=== PATIENT | female | born 1955 | race Caucasian/White ===

== ENCOUNTER 2018-04-29 16:04 | Inpatient (IN) | END 2018-05-01 15:48 | disposition home or self-care (01) | DRG 74 ==

== ENCOUNTER 2018-12-04 16:34 | Emergency (ER) | payer OTHER ==
[~2018-12-04] VITALS: Ht 160 cm; Wt 81.0 kg
[~2018-12-04 16:34] MED LIST: ALLO100T PO; ASPI-817 PO; ATEN50TA PO; CAPT1TAB PO; CIPR500T4 PO; GEMF600T8 PO; PRED10TA PO; VALA500T PO
[2018-12-04 16:45] VITALS: BP 142/76; PULSE 72; RESP 16; Ht 160 cm; Wt 81.0 kg
[2018-12-04] MEDS ORDERED: ASPIRIN 81 MG TAB PO ONE (20:30)
[2018-12-04] MEDS ORDERED: ASPI-903 PO (20:30)
[2018-12-04] MEDS ORDERED: MED4DP PO (20:30)
--- NOTE | 2018-12-04 20:41 | ERD ---
ER Documentation Chief Complaint Chief Complaint L face numbness and swelling since yesterday morning HPI 63-year-old female presenting to the ED for left face weakness since yesterday at noon. Patient states this happened back in April she was seen in the ER she thinks that she was diagnosed with a stroke. Patient is ambulating without difficulty speaking in full sentences when I walked into the room the patient was on her cell phone. Patient denies headache, dizziness, sensation is that she can a pass out patient has a history of high blood pressure. Patient states she takes medications for this. Patient denies any allergies to medications. ROS All systems reviewed and are negative except as per history of present illness. Medications Home Meds Active Scripts Ondansetron (Ondansetron Odt) 4 Mg Tab.rapdis, 4 MG PO Q6H PRN for NAUSEA AND/OR VOMITING, #10 TAB Prov:MARY KATE QUIROGA PA-C 12/04/18 Methylprednisolone* (Medrol* DOSE PACK) 4 Mg/Dose-Pack Tab.ds.pk, 4 MG PO . DIRECTED for 10 Days, PACKET Prov:MARY KATE QUIROGA PA-C 12/04/18 Aspirin* (Aspirin* Chew) 81 Mg Tab.chew, 81 MG PO DAILY for 10 Days, TAB.CHEW Prov:MARY KATE QUIROGA PA-C 12/04/18 Aspirin* (Aspirin* EC) 81 Mg Tablet.dr, 81 MG PO DAILY, #30 TAB Prov:CARMELO CAMPOVERDE 05/01/18 Prednisone* (Prednisone*) 10 Mg Tab, 10 MG PO DAILY, #33 TAB Prov:CARMELO CAMPOVERDE 05/01/18 valAcyclovir Hcl* (valACYclovir Hcl*) 500 Mg Tablet, 1000 MG PO BID for 4 Days, #8 TAB Prov:CARMELO CAMPOVERDE 05/01/18 Ciprofloxacin Hcl* (Ciprofloxacin Hcl*) 500 Mg Tablet, 500 MG PO BID for 3 Days, #6 TAB Prov:CARMELO CAMPOVERDE 05/01/18 Reported Medications Allopurinol* (Allopurinol*) 100 Mg Tablet, 100 MG PO DAILY, TAB 04/29/18 Captopril/Hydrochlorothiazide (Captopril-Hctz 25-25 mg Tablet) 1 Each Tablet, 1 EACH PO DAILY, TAB 04/29/18 Atenolol* (Atenolol*) 50 Mg Tablet, 50 MG PO DAILY, #30 TAB 04/29/18 Gemfibrozil* (Gemfibrozil*) 600 Mg Tablet, 600 MG PO BID, TAB 04/29/18 Allergies Allergies: Coded Allergies: No Known Allergy (Unverified , 04/29/18) PMhx/Soc History of Surgery: Yes (Cataract x2, hysterectomy) Anesthesia Reaction: No Hx Neurological Disorder: No Hx Respiratory Disorders: No Hx Cardiac Disorders: Yes (HTN) Hx Psychiatric Problems: No Hx Miscellaneous Medical Probl: No Hx Alcohol Use: No Hx Substance Use: No Hx Tobacco Use: No Smoking Status: Never smoker FmHx Family History: coronary disease; No diabetes, No other Physical Exam Vitals Vital Signs Date Temp Pulse Resp B/P (MAP) Pulse Ox O2 O2 Flow FiO2 Time Delivery Rate 12/04/18 98.3 72 16 142/76 95 16:45 (98) Physical Exam GENERAL: The patient is well-appearing, well-nourished, in no acute distress HEENT: Patient has mild left facial droop. Atraumatic. Conjunctivae are pink. Pupils equal, round, and reactive to light. There is no scleral icterus. Tympanic membranes clear bilaterally. Oropharynx clear. No nystagmus or photophobia. NECK: C-spine is soft and supple. There is no meningismus. There is no cervical lymphadenopathy. CHEST: Clear to auscultation bilaterally. There are no rales, wheezes or rhonchi. HEART: Regular rate and rhythm. No murmurs, clicks, rubs or gallops. ABDOMEN:Soft, nontender and nondistended. Good bowel sounds. No rebound or guarding. No gross peritonitis. No gross organomegaly or masses. No Grimaldo sign or McBurney point tenderness. BACK: No midline or flank tenderness. EXTREMITIES: Equal pulses bilaterally. There is no peripheral clubbing, cyanosis or edema. No focal swelling or erythema. Full range of motion. Grossly neurovascularly intact. NEUROLOGIC: Alert and oriented. Cranial nerves II through V intact Motor strength in all 4 extremities with 5 out of 5 strength. Sensation grossly intact. Normal speech and gait. SKIN: There is no apparent rash or petechiae. The skin is warm and dry. Argyle stroke scale No pronator drift, no slurred speech, mild left facial droop. " Patient states that this is been like this since yesterday Results 24 hrs Current Medications Medications Dose Sig/Antonio Start Time Status Last (Trade) Ordered Route PRN Stop Time Admin Dose Reason Admin Aspirin 81 mg ONCE ONCE 12/04/18 DC 12/04/18 (Aspirin) PO 20:30 20:38 12/04/18 20:31 Procedures/MDM ED course: EKG Head CT Aspirin The patient was stable throughout the ED course. The patient and/or family informed of laboratory and diagnostic imaging results throughout the ED course. EKG: Read by Dr. Power attending physician. EKG shows normal sinus rhythm with first degree AV block at rate of 65 No arrhythmias, acute ST elevations or T wave changes were noted. Diagnostic imaging: Read by radiologist Faith Mendoza MD PROCEDURE: CT Brain without contrast. CLINICAL INDICATION: Headache, facial droop. TECHNIQUE: A CT of the brain without contrast was performed utilizing axial sections from the skull base through the vertex. One or more the following does reduction techniques were utilized: Automated exposure control, adjustment of the mA/ or kV according to patient's size, or use of iterative reconstruction technique. Total exam CTDIvol is 37 MGy and DLP is 674 mGy-cm. DICOM images are available. COMPARISON: Brain CT 04/29/2018, brain MRI 04/29/2018. FINDINGS: The ventricles and sulci are age-appropriate. There is no intracranial hemorrhage, mass effect or midline shift. No abnormal intra-axial or extra- axial fluid collections are seen. The freire/white matter differentiation is well preserved. There are mild scattered foci of hypoattenuation in the periventricular, deep, and subcortical white matter, which are nonspecific in etiology but likely reflect chronic small vessel ischemic changes. There are mild intracranial vascular calcifications consistent with atherosclerosis. The visualized paranasal sinuses are essentially clear. There is thinning of bilateral lens indicative of prior lens replacement. IMPRESSION: 1. No acute intracranial hemorrhage, transcortical infarction or mass effect. Please note MRI is more sensitive for detection of acute ischemia and can be obtained as clinically warranted. 2. Mild intracranial atherosclerosis and chronic small vessel ischemic changes. Medications given in ER: Chewable aspirin Patient tolerated medication well with no adverse reactions. Patient reported improvement in pain. Medical decision making: Patient is a 63-year-old female presenting to the ED for facial droop that began yesterday around noon. Patient states this happened one other time and she was seen in the ED back in April and could not remember if she was diagnosed with a stroke or not. Upon review of the chart they could not rule out TIA versus Lazo's palsy. Patient was sent for head CT which was unremarkable. Patient's EKG was unremarkable. Patient's physical exam showed only a slight droop in the patient's left facial muscles. Patient still has ability to purse her lips smile, open her mouth, raise her eyebrows, close her eyes, stick out her tongue, swallow without difficulty. Patient has no pronator drift, no neuro deficits in the EOM. Patient was given aspirin in the ED and is being sent home with prescription for prednisone. Patient was advised to return to the ED if symptoms worsen, patient was advised to look out for motor weakness, confusion, increase head pain, nausea vomiting, numbness or tingling. Patient was advised that she needs to be taking baby aspirin daily. Patient is being discharged with a prescription for aspirin was advised that she needs to follow-up with her primary care provider. Patient was also given resources for a neurologist. At this time I have low suspicion for CVA, intracranial hemorrhage, meningitis, encephalitis, CO poisoning, temporal arteritis, benign intracranial hypertension, intracranial mass, glaucoma, preeclampsia, sinusitis, tension headache, migraine headache, cluster headache. Patient's being sent home with prescription for baby aspirin and Medrol Dosepak. Patient was advised that if symptoms worsen return to ER immediately. Patient is in agreement to the treatment plan had no further questions upon discharge Prescription for home: Medrol Dosepak Baby aspirin Discharge: At this time, patient is stable for discharge and outpatient management. I have instructed the patient to follow-up with his\\her primary care physician in 1 to 2 days. I have discussed with the patient the possibility of needing to see a s pecialist for further work-up and imaging studies if symptoms persist. I have instructed the patient to promptly return to the ER for any new or worsening symptoms including increased pain, fever, nausea, vomiting, weakness or LOC. The patient and\\or family expressed understanding of and agreement with this plan. All questions were answered. Home care instructions were provided. Disclaimer: Inadvertent spelling and grammatical errors are likely due to EHR\\dictation software use and do not reflect on the overall quality of patient care. Also, please note that the electronic time recorded on the note does not necessarily reflect the actual time of the patient encounter. Departure Diagnosis: Primary Impression: Numbness Additional Impression: Lazo's palsy Condition: Stable Patient Instructions: Stroke Prevention: Using Blood Thinners (Anticoagulants), Lazo's Palsy Referrals: DAPHNIE HAYES MD [facility] YOU HAVE RECEIVED A MEDICAL SCREENING EXAM AND THE RESULTS INDICATE THAT YOU DO NOT HAVE A CONDITION THAT REQUIRES URGENT TREATMENT IN THE EMERGENCY DEPARTMENT. FURTHER EVALUATION AND TREATMENT OF YOUR CONDITION CAN WAIT UNTIL YOU ARE SEEN IN YOUR DOCTORS OFFICE WITHIN THE NEXT 1-2 DAYS. IT IS YOUR RESPONSIBILITY TO MAKE AN APPOINTMENT FOR FOLOW-UP CARE. IF YOU HAVE A PRIMARY DOCTOR --you should call your primary doctor and schedule an appointment IF YOU DO NOT HAVE A PRIMARY DOCTOR YOU CAN CALL OUR PHYSICIAN REFERRAL HOTLINE AT IF YOU CAN NOT AFFORD TO SEE A PHYSICIAN YOU CAN CHOSE FROM THE FOLLOWING [facility] [address] [facility] [address] [facility] [facility] [address] [facility] [address] [facility] [address] [facility]. [facility] [address] [facility]. [facility] YOU HAVE RECEIVED A MEDICAL SCREENING EXAM AND THE RESULTS INDICATE THAT YOU DO NOT HAVE A CONDITION THAT REQUIRES URGENT TREATMENT IN THE EMERGENCY DEPARTMENT. FURTHER EVALUATION AND TREATMENT OF YOUR CONDITION CAN WAIT UNTIL YOU ARE SEEN IN YOUR DOCTORS OFFICE WITHIN THE NEXT 1-2 DAYS. IT IS YOUR RESPONSIBILITY TO MAKE AN APPOINTMENT FOR FOLOW-UP CARE. IF YOU HAVE A PRIMARY DOCTOR --you should call your primary doctor and schedule and appointment IF YOU DO NOT HAVE A PRIMARY DOCTOR YOU CAN CALL OUR PHYSICIAN REFERRAL HOTLINE AT . IF YOU CAN NOT AFFORD TO SEE A PHYSICIAN YOU CAN CHOSE FROM THE FOLLOWING [facility] INSTITUTIONS: [facility] [address] [place] [address] [facility] [address] [place] [address] [address] [address] Additional Instructions: Llame a viera doctor MAANA y nishi suki taylor para el mismo da.Dle a la secretaria que le instruimos hacer esta taylor. Llame si viera condicin se empeora antes de la taylor. MARY KATE QUIROGA PA-C Dec 04, 2018 20:41
[2018-12-04] MEDS ORDERED: ONDA4TAB14 PO (20:47)
== END 2018-12-04 21:08 | disposition home or self-care (01) ==
LOC: FTE 16:34
DX: G51.0 Bell's palsy (principal); I10 Essential (primary) hypertension; Z79.82 Long term (current) use of aspirin
CPT/HCPCS: 70450; 93005; Z7502; Z7610

== ENCOUNTER 2019-01-21 19:27 | Emergency (ER) | payer OTHER ==
[~2019-01-21] VITALS: Ht 154.9 cm; Wt 82.4 kg
[~2019-01-21 19:27] MED LIST changes: +ASPI-903 PO; +IBUP-1542 PO; +MED4DP PO; +ONDA4TAB14 PO; +PRED20TA PO
[2019-01-21 19:29] VITALS: BP 167/79; PULSE 64; RESP 16; Ht 154.9 cm; Wt 82.4 kg
[2019-01-21] MEDS ORDERED: KETOROLAC 30 MG INJ IM STA (20:43)
[2019-01-21] MEDS ORDERED: DEXAMETHASONE 10 MG/ML 1 ML INJ IM ONE (21:00)
--- NOTE | 2019-01-21 21:00 | ERD ---
ER Documentation Chief Complaint Chief Complaint RIGHT ARM/SHOULDER PAIN X LAST NIGHT. HPI 63-year-old female with past medical history of hypertension, hyperlipidemia, hypothyroidism who presents with complaint of right shoulder pain since last night. Patient states she is abruptly developed symptoms and has not been told to raise right arm above shoulder level. She denies recent injury or fall. Denies personal history of osteoarthritis. Patient has not taken any medication for her symptoms. She denies any numbness or weakness of the affected limb. She otherwise without complaint or symptoms. ROS All systems reviewed and are negative except as per history of present illness. Medications Home Meds Active Scripts Prednisone* (Prednisone*) 20 Mg Tab, 40 MG PO DAILY for 4 Days, TAB Prov:IRAM RODRIGUEZ PA-C 01/21/19 Ibuprofen* (Motrin*) 600 Mg Tab, 600 MG PO Q6, #30 TAB Prov:IRAM RODRIGUEZ PA-C 01/21/19 Ondansetron (Ondansetron Odt) 4 Mg Tab.rapdis, 4 MG PO Q6H PRN for NAUSEA AND/OR VOMITING, #10 TAB Prov:MARY KATE QUIROGA PA-C 12/04/18 Methylprednisolone* (Medrol* DOSE PACK) 4 Mg/Dose-Pack Tab.ds.pk, 4 MG PO . DIRECTED for 10 Days, PACKET Prov:MARY KATE QUIROGA PA-C 12/04/18 Aspirin* (Aspirin* Chew) 81 Mg Tab.chew, 81 MG PO DAILY for 10 Days, TAB.CHEW Prov:MARY KATE QUIROGA PA-C 12/04/18 Aspirin* (Aspirin* EC) 81 Mg Tablet.dr, 81 MG PO DAILY, #30 TAB Prov:CARMELO CAMPOVERDE 05/01/18 Prednisone* (Prednisone*) 10 Mg Tab, 10 MG PO DAILY, #33 TAB Prov:CARMELO CAMPOVERDE 05/01/18 valAcyclovir Hcl* (valACYclovir Hcl*) 500 Mg Tablet, 1000 MG PO BID for 4 Days, #8 TAB Prov:CARMELO CAMPOVERDE 05/01/18 Ciprofloxacin Hcl* (Ciprofloxacin Hcl*) 500 Mg Tablet, 500 MG PO BID for 3 Days, #6 TAB Prov:CARMELO CAMPOVERDE 05/01/18 Reported Medications Allopurinol* (Allopurinol*) 100 Mg Tablet, 100 MG PO DAILY, TAB 04/29/18 Captopril/Hydrochlorothiazide (Captopril-Hctz 25-25 mg Tablet) 1 Each Tablet, 1 EACH PO DAILY, TAB 04/29/18 Atenolol* (Atenolol*) 50 Mg Tablet, 50 MG PO DAILY, #30 TAB 04/29/18 Gemfibrozil* (Gemfibrozil*) 600 Mg Tablet, 600 MG PO BID, TAB 04/29/18 Allergies Allergies: Coded Allergies: No Known Allergy (Unverified , 04/29/18) PMhx/Soc History of Surgery: Yes (Cataract x2, hysterectomy) Anesthesia Reaction: No Hx Neurological Disorder: No Hx Respiratory Disorders: No Hx Cardiac Disorders: Yes (HTN) Hx Psychiatric Problems: No Hx Miscellaneous Medical Probl: No Hx Alcohol Use: No Hx Substance Use: No Hx Tobacco Use: No Smoking Status: Never smoker FmHx Family History: No diabetes, No coronary disease, No other Physical Exam Vitals Vital Signs Date Temp Pulse Resp B/P (MAP) Pulse Ox O2 O2 Flow FiO2 Time Delivery Rate 01/21/19 97.1 64 16 167/79 98 19:29 (108) Physical Exam I have reviewed the triage vital signs. Const: Well nourished, well developed, appears stated age Eyes: PERRL, no conjunctival injection HENT: NCAT, Neck supple without meningismus CV: RRR, Warm, well-perfused extremities RESP: CTAB, Unlabored respiratory effort GI: soft, non-tender, non-distended, no masses MSK: No gross deformities appreciated, right shoulder no gross deformity, patient unable to raise above 90 degrees, no significant swelling or erythema, distal pulses present, 5 out of 5 strength in hand, SI LT throughout upper extremity Skin: Warm, dry. No rashes Neuro: grossly non focal Psych: Appropriate mood and affect. Results 24 hrs Current Medications Medications Dose Sig/Antonio Start Time Status Last (Trade) Ordered Route PRN Stop Time Admin Dose Reason Admin Ketorolac 30 mg ONCE STAT 01/21/19 DC 01/21/19 Tromethamine IM 20:43 20:51 (Toradol) 01/21/19 20:47 10 mg ONCE ONCE 01/21/19 01/21/19 Dexamethasone IM 21:00 20:52 (Decadron) 01/21/19 21:01 Procedures/MDM 63-year-old female presents with symptoms consistent with frozen shoulder syndrome. I have low suspicion for any acute fracture or dislocation of affected limb. X-ray of right shoulder unremarkable. Will discharge patient with short course of steroids and NSAIDs. Patient given steroids and Toradol in the ED. Patient advised to follow-up with PMD. Strict return precautions explained in detail. All questions answered. DISPOSITION PLAN: We discussed follow up with the patient's primary care doctor within 24 to 48 hours. Patient counseled regarding my diagnostic impression and care plan. Prior to discharge all questions answered. Pt agrees with treatment plan and understands strict return precautions. Precautionary instructions provided including instructions to return to the ER if not improving or for any worsening or changing symptoms or concerns. Disclaimer: Inadvertent spelling and grammatical errors are likely due to EHR/di ctation software use and do not reflect on the overall quality of patient care. Also, please note that the electronic time recorded on this note does not necessarily reflect the actual time of the patient encounter. Departure Diagnosis: Ruled Out: Shoulder pain Condition: Stable Patient Instructions: Treating Frozen Shoulder: Exercises, Treating Frozen Shoulder: Medical Treatment Referrals: [facility] YOU HAVE RECEIVED A MEDICAL SCREENING EXAM AND THE RESULTS INDICATE THAT YOU DO NOT HAVE A CONDITION THAT REQUIRES URGENT TREATMENT IN THE EMERGENCY DEPARTMENT. FURTHER EVALUATION AND TREATMENT OF YOUR CONDITION CAN WAIT UNTIL YOU ARE SEEN IN YOUR DOCTORS OFFICE WITHIN THE NEXT 1-2 DAYS. IT IS YOUR RESPONSIBILITY TO MAKE AN APPOINTMENT FOR FOLOW-UP CARE. IF YOU HAVE A PRIMARY DOCTOR --you should call your primary doctor and schedule an appointment IF YOU DO NOT HAVE A PRIMARY DOCTOR YOU CAN CALL OUR PHYSICIAN REFERRAL HOTLINE AT IF YOU CAN NOT AFFORD TO SEE A PHYSICIAN YOU CAN CHOSE FROM THE FOLLOWING [facility] CLINICS [facility] [address] [facility] [address] [facility] [facility] [address] [facility] [address] [facility] [address] [facility]. [facility]. [address] Additional Instructions: Call your primary care doctor TOMORROW for an appointment during the next 2-3 days.See the doctor sooner or return here if your condition worsens before your appointment time. Shai un seguimiento con viera diamond ann. IRAM RODRIGUEZ PA-C Jan 21, 2019 21:00
== END 2019-01-21 21:59 | disposition home or self-care (01) ==
LOC: FTE 19:27
DX: M79.601 Pain in right arm (principal); I10 Essential (primary) hypertension; E03.9 Hypothyroidism, unspecified; Z79.82 Long term (current) use of aspirin
CPT/HCPCS: 73030; 96372; J1100; J1885; Z7502